=== PATIENT | female | born 1945 | race African-American/Black ===

== ENCOUNTER 2019-07-30 16:23 | Inpatient (IN) | payer OTHER ==
[~2019-07-30] VITALS: Ht 162.6 cm; Wt 75.0 kg
[2019-07-30 16:37] VITALS: Ht 162.6 cm; Wt 75.0 kg
[2019-07-30 17:18] LABS: BASOPHIL % 0.2 % (0-2); PLATELET COUNT 379 x10^3mcL (130-400)
[2019-07-30 17:41] LABS: ALBUMIN 4.1 g/dL (3.4-5.0); CALCIUM 10.4 mg/dL (8.5-10.1); CARBON DIOXIDE 30.4 mmol/L (21-32); CHLORIDE SERUM 105 mmol/L (98-107); GLUCOSE SERUM 101 mg/dL (74-106); POTASSIUM SERUM 4.1 mmol/L (3.5-5.1); SODIUM SERUM 142 mmol/L (136-145); TOTAL PROTEIN, SERUM 8.3 g/dL (6.4-8.2)
[2019-07-30 17:42] LABS: ALKALINE PHOSPHATASE 104 U/L (46-116); ALT/SGPT 28 U/L (14-59); AST/SGOT 10 U/L (15-37); BILIRUBIN TOTAL 0.3 mg/dL (0.20-1.00)
[2019-07-30 17:48] LABS: UA SPECIFIC GRAVITY >=1.030 (1.005-1.035); microscopic required? YES; urine erythrocyte NEGATIVE (NEGATIVE)
[2019-07-30] MEDS ORDERED: LOTENSIN20 MG (18:48)
[2019-07-30] MEDS ORDERED: FORTAMET500 M1 (18:49)
[2019-07-30] MEDS ORDERED: ACTOS15 M1 (18:49)
[2019-07-30] MEDS ORDERED: EZALLOR SPRINKLE5 MG (18:49)
[2019-07-30] MEDS ORDERED: TRAZODONE150 M1 (18:50)
[2019-07-30] MEDS ORDERED: DULOXETINE HYDR20 MG (18:50)
[2019-07-30] MEDS ORDERED: AZOR 10-20 MG1 EACH (18:50)
[2019-07-30] MEDS ORDERED: ZIAC1 TA1 (18:50)
[2019-07-30] MEDS ORDERED: JARDIANCE10 MG (18:50)
[2019-07-31] MEDS ORDERED: EZALLOR SPRINKL40 MG PO (01:11)
[2019-07-31 03:06] VITALS: BP 175/82
[2019-07-31 05:33] VITALS: BP 124/68
[2019-07-31 06:29] LABS: BASOPHIL % 0.3 % (0-2); PLATELET COUNT 314 x10^3mcL (130-400)
[2019-07-31 06:38] LABS: RED CELL DISTRIBUTION WIDTH 15.1 % (11.5-14.5)
[2019-07-31 07:33] LABS: POTASSIUM SERUM 3.3 mmol/L (3.5-5.1); SODIUM SERUM 139 mmol/L (136-145)
[2019-07-31 07:34] LABS: CHLORIDE SERUM 102 mmol/L (98-107); PHOSPHOROUS 3.9 mg/dL (2.5-4.9); TRIGLYCERIDES 209 mg/dL (<150)
[2019-07-31 07:35] LABS: CALCIUM 9.3 mg/dL (8.5-10.1); CREATININE SERUM 1.1 mg/dL (0.6-1.0); GLUCOSE SERUM 187 mg/dL (74-106); HDL CHOLESTEROL 47 mg/dL (40-60); MAGNESIUM 1.8 mg/dL (1.8-2.4)
[2019-07-31 07:36] LABS: CARBON DIOXIDE 29.8 mmol/L (21-32); CHOLESTEROL 176 mg/dL (<200); CHOLESTEROL/HDL RATIO 3.7
[2019-07-31 08:02] VITALS: BP 122/64
[2019-07-31 12:07] VITALS: BP 145/67
[2019-07-31 17:12] VITALS: BP 165/83
[2019-07-31 19:43] VITALS: BP 143/70
[2019-08-01 05:37] VITALS: BP 155/69
[2019-08-01 07:05] LABS: SODIUM SERUM 141 mmol/L (136-145)
[2019-08-01 07:06] LABS: CALCIUM 9.2 mg/dL (8.5-10.1); CARBON DIOXIDE 28.8 mmol/L (21-32); CHLORIDE SERUM 106 mmol/L (98-107); GLUCOSE SERUM 134 mg/dL (74-106); MAGNESIUM 1.8 mg/dL (1.8-2.4); PHOSPHOROUS 3.6 mg/dL (2.5-4.9); POTASSIUM SERUM 4.8 mmol/L (3.5-5.1)
[2019-08-01 07:24] LABS: BASOPHIL % 0.2 % (0-2); PLATELET COUNT 288 x10^3mcL (130-400); RED CELL DISTRIBUTION WIDTH 14.5 % (11.5-14.5)
[2019-08-01 08:26] VITALS: BP 146/80
[2019-08-01 12:43] VITALS: BP 135/68
[2019-08-01 16:13] VITALS: BP 142/74
[2019-08-01 19:28] VITALS: BP 147/68
[2019-08-02 05:28] VITALS: BP 143/95
[2019-08-02 07:58] LABS: CALCIUM 9.1 mg/dL (8.5-10.1); CARBON DIOXIDE 26.2 mmol/L (21-32); CHLORIDE SERUM 103 mmol/L (98-107); CREATININE SERUM 0.8 mg/dL (0.6-1.0); GLUCOSE SERUM 125 mg/dL (74-106); POTASSIUM SERUM 3.9 mmol/L (3.5-5.1); SODIUM SERUM 139 mmol/L (136-145)
[2019-08-02 08:06] LABS: BASOPHIL % 0.2 % (0-2); PLATELET COUNT 275 x10^3mcL (130-400)
[2019-08-02 08:26] LABS: RED CELL DISTRIBUTION WIDTH 14.6 % (11.5-14.5)
[2019-08-02 10:00] VITALS: BP 130/64
[2019-08-02 12:48] VITALS: BP 124/73
[2019-08-02 16:58] VITALS: BP 134/72
[2019-08-02 20:26] VITALS: BP 135/59
[2019-08-03 05:06] VITALS: BP 136/67
[2019-08-03 07:25] LABS: BASOPHIL % 0.3 % (0-2); PLATELET COUNT 308 x10^3mcL (130-400); RED CELL DISTRIBUTION WIDTH 15.2 % (11.5-14.5)
[2019-08-03 07:44] VITALS: BP 147/78
[2019-08-03 08:03] LABS: CALCIUM 9.7 mg/dL (8.5-10.1); CARBON DIOXIDE 29.7 mmol/L (21-32); CHLORIDE SERUM 102 mmol/L (98-107); CREATININE SERUM 0.8 mg/dL (0.6-1.0); GLUCOSE SERUM 93 mg/dL (74-106); POTASSIUM SERUM 4.1 mmol/L (3.5-5.1); SODIUM SERUM 137 mmol/L (136-145)
[2019-08-03 12:40] VITALS: BP 111/65
[2019-08-03 17:39] VITALS: BP 149/74
[2019-08-03 20:50] VITALS: BP 146/69
[2019-08-04 04:53] VITALS: BP 132/62
[2019-08-04 06:48] LABS: BASOPHIL % 0.3 % (0-2); PLATELET COUNT 279 x10^3mcL (130-400); RED CELL DISTRIBUTION WIDTH 14.4 % (11.5-14.5)
[2019-08-04 06:55] LABS: CALCIUM 9.7 mg/dL (8.5-10.1); CARBON DIOXIDE 26.1 mmol/L (21-32); CHLORIDE SERUM 103 mmol/L (98-107); CREATININE SERUM 0.7 mg/dL (0.6-1.0); GLUCOSE SERUM 113 mg/dL (74-106); POTASSIUM SERUM 3.7 mmol/L (3.5-5.1); SODIUM SERUM 137 mmol/L (136-145)
[2019-08-04] MEDS ORDERED: ATORVASTATIN CA40 M1 PO (12:48)
[2019-08-04] MEDS ORDERED: NOR10 PO (12:48)
[2019-08-04] MEDS ORDERED: HYD25 PO (12:49)
[2019-08-04] MEDS ORDERED: ECO81 PO (12:49)
[2019-08-04] MEDS ORDERED: LOT10 PO (12:49)
[2019-08-04] MEDS ORDERED: MECLIZINE HCL12.5 MG PO (12:50)
[2019-08-04 12:51] VITALS: BP 113/70
[2019-08-04] MEDS ORDERED: PLA75 PO (12:51)
[2019-08-04 13:45] VITALS: BP 113/70
== END 2019-08-04 14:45 | disposition home or self-care (01) | DRG 64 ==
LOC: ED 16:23 → DU 20:15
PROVIDERS: Emergency Medicine; ADMIT Student in an Organized Health Care Education/Training Program
DX: I63.81 Other cerebral infarction due to occlusion or stenosis of small artery (principal); N17.0 Acute kidney failure with tubular necrosis; E11.42 Type 2 diabetes mellitus with diabetic polyneuropathy; I10 Essential (primary) hypertension; E83.52 Hypercalcemia; E78.5 Hyperlipidemia, unspecified; F32.9 Major depressive disorder, single episode, unspecified; J44.9 Chronic obstructive pulmonary disease, unspecified; M19.90 Unspecified osteoarthritis, unspecified site; F17.210 Nicotine dependence, cigarettes, uncomplicated; Z68.27 Body mass index [BMI] 27.0-27.9, adult; Z79.84 Long term (current) use of oral hypoglycemic drugs
CPT/HCPCS: 82962; 97116-GP; G0378; J1644; J1815; J7030; J8597; Q0092; Q9967